=== PATIENT | male | born 1985 | race Caucasian/White ===

== ENCOUNTER 2017-08-26 12:01 | Outpatient (CLI) ==
--- NOTE | 2017-08-26 14:24 | MRI ---
EXAM: MRI of the left ankle/hind-foot without contrast COMPARISON: Left foot radiographs 08/19/2017. HISTORY: Left foot/heel/ankle pain. No known injury. TECHNIQUE: Multiplanar noncontrast MR images of the left ankle/hind-foot were acquired using a 1.2 T esla magnet. FINDINGS: Mild chronic-appearing deformity of the base of the fifth metatarsal as noted on previous radiographs which may represent sequela of a partially fused accessory ossicle or old avulsion injury . No marrow edema to suggest an ongoing/acute osseous injury. Small dorsal osteophytes at the amadeo avicular joint. Inversion recovery hyperintense signal and thinning of the Lisfranc ligament suggest ing a sprain/partial tear. There appear to be some intact fibers on limited assessment, though corre lation with dedicated MRI of the forefoot could be considered. No abnormal subluxation of the tarsom etatarsal joints. The talar dome is intact. Trace joint effusions of the ankle/hind-foot. Small retrocalcaneal plantar calcaneal spurs. Minimal distal Achilles tendinosis and peritendinitis without a tendon tear. Mild active inflammation of the proximal portion of the plantar fascia withou t fascial rupture. The anterior tibial, extensor hallicus longus and extensor digitorum tendons are intact. Tendinosis and partial tear of the posterior tibial tendon from the medial malleolus through the navicular tuber osity with thinning of the tendon though intact fibers are identified. Mild posterior tibial tenosyn ovitis. Flexor digitorum is intact. Mild flexor hallicus longus tenosynovitis. Peroneus longus/randall vis tendinosis and tenosynovitis with partial/split tear of the peroneus brevis at/below the lateral malleolus. There is subcutaneous edema most pronounced medially and laterally. Sprain of the anterior tibiofibu lar ligament without abnormal widening syndesmosis. Sprain/partial tear of the anterior talofibular ligament. Sprains with scarring of the calcaneofibular, posterior talofibular and deltoid ligaments. IMPRESSION: 1. Mild chronic-appearing deformity of the base of the fifth metatarsal related to a partially fused accessory ossicle or sequela of old trauma. No acute osseous injury at that site. Mild degenerative changes. Trace joint effusions. 2. Findings concerning for a least a sprain/partial tear of the Lisfranc ligament with suspected res idual intact fibers. Correlate with physical examination and consider further assessment with dedica georgina MRI of the left forefoot. 3. Subcutaneous edema. 4. Mild Achilles tendinosis and peritendinitis with enthesopathy. No tendon tear. Mild acute on ch ronic changes of plantar fasciitis. 5. Tendinosis/partial tear and tenosynovitis involving the posterior tibial tendon. Flexor hallicus longus tenosynovitis. Peroneus longus/brevis tendinosis with partial/split tear of the peroneus brevis. 6. Sprains with scarring of the medial and lateral supporting ligaments of the ankle as described.
== END 2017-08-26 12:02 | disposition home or self-care (01) ==
LOC: RAD 12:01
PROVIDERS: ATTEND Nurse Practitioner Family
DX: M72.2 Plantar fascial fibromatosis (principal); M79.672 Pain in left foot; R73.09 Other abnormal glucose
CPT/HCPCS: 36415; 83036

== ENCOUNTER 2018-04-09 13:27 | Outpatient (POV) | END 2018-04-09 17:00 | LOC: OUTPT 13:27 | PROVIDERS: ATTEND Otolaryngology | DX: H91.90 Unspecified hearing loss, unspecified ear (principal) ==